=== PATIENT | male | born 1945 | race Caucasian/White ===

== ENCOUNTER 2022-11-15 08:15 | Outpatient (CLI) | payer MEDICARE, OTHER | END 2022-11-15 23:59 | disposition home or self-care (01) | LOC: LAB 08:15 | PROVIDERS: ATTEND Surgery | DX: Z01.812 Encounter for preprocedural laboratory examination (principal); Z20.822 Contact with and (suspected) exposure to COVID-19 ==

== ENCOUNTER 2022-11-17 06:23 | Day surgery (SDC) | payer MEDICARE, OTHER ==
[~2022-11-17 06:23] MED LIST: FENTANYL CITRATE 100 MCG/2 ML AMPUL ONE
[2022-11-17] MEDS ORDERED: PROPOFOL 200 MG/20 ML BOTTLE ONE (07:00)
[2022-11-17] MEDS ORDERED: LIDOCAINE-MPF 2% 5 ML VIAL ONE (07:00)
== END 2022-11-17 09:27 | disposition home or self-care (01) ==
LOC: DS 06:23
PROVIDERS: ATTEND Surgery
DX: R19.4 Change in bowel habit (principal); R63.4 Abnormal weight loss; K44.9 Diaphragmatic hernia without obstruction or gangrene; R10.30 Lower abdominal pain, unspecified; K64.8 Other hemorrhoids; B96.81 Helicobacter pylori [H. pylori] as the cause of diseases classified elsewhere; K29.50 Unspecified chronic gastritis without bleeding; K62.1 Rectal polyp; K63.89 Other specified diseases of intestine; K31.89 Other diseases of stomach and duodenum; E11.9 Type 2 diabetes mellitus without complications; Z79.899 Other long term (current) drug therapy; Z98.890 Other specified postprocedural states
CPT/HCPCS: 45380; 43239; 71045; 82962 ×2; 88313; 88342; 88305; J3490; J3010; J7040; A4663